=== PATIENT | male | born 1960 | race Caucasian/White ===

== ENCOUNTER 2018-11-01 07:09 | Emergency (ER) | payer BC ==
[~2018-11-01] VITALS: Ht 167.6 cm; Wt 111.0 kg
[~2018-11-01 07:09] MED LIST: ACTOS45 MG OR; AVAPRO OR; GLUCOTROL XL5 MG OR; PLAVIX75 MG OR; VERAPAMIL240 MG OR; VYTORIN1 TA1 OR
[2018-11-01 07:47] LABS: URINE BILIRUBIN - DIPSTICK NEGATIVE (NEGATIVE); URINE BLOOD DIPSTICK MODERATE (NEGATIVE); URINE COLOR YELLOW; URINE GLUCOSE - DIPSTICK >=1000 mg/dL (NEGATIVE); URINE KETONE NEGATIVE (NEGATIVE); URINE LEUK ESTERASE NEGATIVE (NEGATIVE); URINE NITRITE - DIPSTICK NEGATIVE (Negative); URINE PH 5.5 (4.5-8.0); URINE PROTEIN - DIPSTICK NEGATIVE (NEG-TRACE); URINE UROBILINOGEN - DIPSTICK 0.2 E.U./dL (0.2)
[2018-11-01 08:15] LABS: HEMATOCRIT 47.7 % (39.0-50.0); HEMOGLOBIN 15.9 g/dl (14.0-18.0); IMMATURE GRANULOCYTES 0.2 % (0.0-5.0); MEAN CELL VOLUME 83.5 fL CALC (80.0-100.0); MEAN CORPUSCULAR HGB 27.8 pG CALC (26.0-32.0); MEAN CORPUSCULAR HGB CONC 33.3 g/L CALC (32.0-36.0); NEUT# 5.95 thou/uL (1.82-7.42); RED BLOOD COUNT 5.71 mill/uL (4.70-6.10); RED CELL DISTRI WIDTH 13.4 % (11.5-15.5)
[2018-11-01] MEDS ORDERED: NOVOLOG MIX SC (08:25)
[2018-11-01] MEDS ORDERED: HUMULIN N100 UNIT/M SC (08:27)
[2018-11-01] MEDS ORDERED: INVOKAMET 150-51 TAB PO (08:29)
[2018-11-01 08:43] LABS: ALBUMIN 4.1 g/dL (3.2-5.0); ALKALINE PHOSPHATASE 94 u/l (38-126); AMYLASE 31 u/l (30-110); ANION GAP 16 (6-22 (CALC)); BILIRUBIN, TOTAL 1.3 mg/dL (0.0-1.4); BUN 22 mg/dL (9-20); BUN/CREATININE RATIO 20 (12-20 (CALC)); CARBON DIOXIDE 24 mmol/l (22-30); CHLORIDE 105 mmol/l (95-108); CREATININE 1.1 mg/dL (0.7-1.3); GFR > 60 ML/MIN (>=60 (CALC)); GFR FOR AFR.AMER. > 60 ML/MIN (>=60 (CALC)); LIPASE 72 u/l (23-300); POTASSIUM 4.4 mmol/l (3.5-5.1); SGOT/AST 26 u/l (17-59); SODIUM 141 mmol/l (137-146); TOTAL PROTEIN 7.1 g/dL (6.3-8.2)
[2018-11-01] MEDS ORDERED: TAMSULOSIN0.4 MG PO (09:40)
[2018-11-01 09:55] VITALS: BP 161/79
== END 2018-11-01 09:55 | disposition home or self-care (01) | DRG 694 ==
LOC: ED 07:09
PROVIDERS: Family Medicine
DX: N20.2 Calculus of kidney with calculus of ureter (principal); I10 Essential (primary) hypertension; E11.9 Type 2 diabetes mellitus without complications

== ENCOUNTER 2022-10-15 17:12 | Emergency (ER) | payer MEDICARE ==
[~2022-10-15] VITALS: Ht 167.6 cm; Wt 107.5 kg
[2022-10-15] VITALS (13 sets, daily range): BP systolic 160–221; BP diastolic 76–113
[~2022-10-15 17:12] MED LIST changes: +HUMULIN N100 UNIT/M SC; +INVOKAMET 150-51 TAB PO; +NOVOLOG MIX SC; +TAMSULOSIN0.4 MG PO
[2022-10-15 17:58] LABS: BASO% 0.6 % (0-3); HEMATOCRIT 47.3 % (39.0-50.0); HEMOGLOBIN 16.1 g/dl (14.0-18.0); IMMATURE GRANULOCYTES 0.1 % (0.0-5.0); LYMPH% 35.4 % (15-41); MEAN CELL VOLUME 82.7 fL CALC (80.0-100.0); MEAN CORPUSCULAR HGB 28.1 pG CALC (26.0-32.0); MONO% 8.6 % (2-13); NEUT# 4.73 thou/uL (1.82-7.42); NEUT% 53.3 % (42-76); RED BLOOD COUNT 5.72 mill/uL (4.70-6.10); RED CELL DISTRI WIDTH 12.9 % (11.5-15.5); URINE BILIRUBIN - DIPSTICK NEGATIVE (NEGATIVE); URINE BLOOD DIPSTICK NEGATIVE (NEGATIVE); URINE COLOR YELLOW; URINE GLUCOSE - DIPSTICK >=1000 mg/dL (NEGATIVE); URINE KETONE NEGATIVE (NEGATIVE); URINE LEUK ESTERASE NEGATIVE (NEGATIVE); URINE PROTEIN - DIPSTICK NEGATIVE (NEG-TRACE); URINE UROBILINOGEN - DIPSTICK 0.2 E.U./dL (0.2)
[2022-10-15 18:06] LABS: URINE NITRITE - DIPSTICK NEGATIVE (Negative)
[2022-10-15 18:13] LABS: ALBUMIN 4.6 g/dL (3.2-5.0); ALKALINE PHOSPHATASE 116 u/l (38-126); ANION GAP 12 (6-22 (CALC)); BILIRUBIN, TOTAL 0.9 mg/dL (0.0-1.4); BUN 17 mg/dL (9-20); BUN/CREATININE RATIO 18 (12-20 (CALC)); CARBON DIOXIDE 28 mmol/l (22-30); CHLORIDE 100 mmol/l (95-108); CREATININE 0.9 mg/dL (0.7-1.3); GFR FOR AFR.AMER. > 60 ML/MIN (>=60 (CALC)); GFR OTHER RACES > 60 ML/MIN (>=60 (CALC)); SGOT/AST 26 u/l (17-59); SODIUM 136 mmol/l (137-146); TOTAL PROTEIN 8.1 g/dL (6.3-8.2)
[2022-10-15] MEDS ORDERED: CLONIDINE0.1 MG PO (20:20)
== END 2022-10-15 21:37 | disposition home or self-care (01) ==
LOC: ED 17:12
PROVIDERS: Family Medicine
DX: I10 Essential (primary) hypertension (principal); E11.9 Type 2 diabetes mellitus without complications; Z79.4 Long term (current) use of insulin

== ENCOUNTER 2024-12-14 05:02 | Emergency (ER) | payer BC ==
[~2024-12-14] VITALS: Ht 167.6 cm; Wt 85.7 kg
[~2024-12-14 05:02] MED LIST changes: +ATORVASTATIN CA10 MG PO; +AVAPRO300 MG PO; +CLONIDINE0.1 MG PO; +HUMALOG100 UNIT/M SC; +METFORMIN500 M2 PO; +TOUJEO MAX300 UNIT/M SC; +TRULICITY0.75 MG/0. SC; +VERAPAMIL HCL240 MG PO
[2024-12-14 05:13] VITALS: BP 176/82
[2024-12-14] MEDS ORDERED: LIDOcaine HCl 1% (Local Anesth.) 20 ML VIAL STI STA (05:26)
[2024-12-14 05:30] VITALS: BP 156/71
[2024-12-14] MEDS ORDERED: LORazepam 2 MG/ML IV ONE (06:20)
[2024-12-14 06:58] VITALS: BP 156/71
== END 2024-12-14 06:58 | disposition home or self-care (01) | DRG 156 ==
LOC: ED 05:02
PROC: 0HQ2XZZ Repair Right Ear Skin, External Approach (ICD-10-PCS; principal; 2024-12-14)
DX: S01.311A Laceration without foreign body of right ear, initial encounter (principal); I10 Essential (primary) hypertension; E11.9 Type 2 diabetes mellitus without complications; W06.XXXA Fall from bed, initial encounter; Z79.85 Long-term (current) use of injectable non-insulin antidiabetic drugs; Z79.4 Long term (current) use of insulin; Z79.84 Long term (current) use of oral hypoglycemic drugs